=== PATIENT | female | born 1940 | race Caucasian/White ===

== ENCOUNTER 2017-05-21 06:58 | Day surgery (SDC) | payer OTHER, BC ==
[~2017-05-21] VITALS: Ht 160 cm; Wt 108.0 kg
[2017-05-21 07:46] VITALS: BP 149/69
[2017-05-21 10:13] VITALS: BP 133/63
== END 2017-05-21 11:10 | disposition home or self-care (01) ==
LOC: DS 06:58 → OR 08:30 → GI 08:30 → DS 11:10
PROVIDERS: Internal Medicine
PROC: 0DJD8ZZ Inspection of Lower Intestinal Tract, Via Natural or Artificial Opening Endoscopic (ICD-10-PCS; principal; 2017-05-21 08:30)
DX: Z12.11 Encounter for screening for malignant neoplasm of colon (principal); K57.90 Diverticulosis of intestine, part unspecified, without perforation or abscess without bleeding; K59.09 Other constipation; I10 Essential (primary) hypertension; E78.5 Hyperlipidemia, unspecified; F41.9 Anxiety disorder, unspecified; J45.909 Unspecified asthma, uncomplicated; E66.01 Morbid (severe) obesity due to excess calories; Z68.41 Body mass index [BMI] 40.0-44.9, adult; Z96.649 Presence of unspecified artificial hip joint; Z86.010 Personal history of colon polyps; Z80.0 Family history of malignant neoplasm of digestive organs; Z80.42 Family history of malignant neoplasm of prostate
CPT/HCPCS: 45378; J1200; J1610; J2250; J2310; J3010; J3490